=== PATIENT | female | born 1980 | race African-American/Black ===

== ENCOUNTER 2016-09-29 18:28 | Emergency (ER) | payer OTHER ==
[~2016-09-29] VITALS: Ht 152.4 cm; Wt 59.1 kg
[~2016-09-29 18:28] MED LIST: CREON12 PO; MEDR4PAK3 PO; PANT20 PO; ZITH200S PO
[2016-09-29 18:30] VITALS: BP 136/97; PULSE 89; RESP 14; TEMP 98.2; O2SAT 97
--- NOTE | 2016-09-29 20:24 | PD ---
HPI Chief Complaint: Injury Time Seen by Provider: 20:15 Travel History International Travel<30 days: No Contact w/Intl Traveler<30days: No Traveled to known affect area: No History of Present Illness HPI 36 year old female presents for evaluation of left index finger pain. Symptom onset 4 days ago. Pain is an aching pain that seems to be localized to the proximal aspect of the left index finger and MCP joint. Pain is worse with movement. 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 Denies any pain in the other fingers, left wrist, proximal arm. She has never had this problem before. No other complaints. PFSH Past Medical History Arthritis: No Asthma: No Autoimmune Disease: No Blood Disorders: No Anxiety: Yes Depression: No Heart Rhythm Problems: No Cancer: No Cardiovascular Problems: No High Cholesterol: No Chemotherapy: No Chest Pain: No Congestive Heart Failure: No COPD: No Cerebrovascular Accident: No Diabetes: No Diminished Hearing: Yes Endocrine: No Gastrointestinal Disorders: Yes (GASTROPARESIS) GERD: Yes Genitourinary: Yes Headaches: No Hepatitis: No Hiatal Hernia: No Hypertension: Yes Immune Disorder: No Implanted Vascular Access Dvce: Yes Kidney Stones: Yes Musculoskeletal: Yes (SONIYA) Neurologic: No Psychiatric: No Reproductive: No Respiratory: No Immunizations Current: Yes Migraines: No Myocardial Infarction: No Pancreatitis: Yes Radiation Therapy: No Renal Failure: No Seizures: No Sickle Cell Disease: No Thyroid Disease: No Ulcer: No PNEUMOCCOCAL Vaccine (Year): 2007 ?: Not Menopausal: Yes : 2 Para: 2 Ectopic : Yes Ovarian Cysts: Yes Tubal Ligation: Yes Past Surgical History Abdominal Surgery: Yes (HX G TUBE/REMOVED) AICD: No Appendectomy: Yes Arteriovenous Shunt: No Cardiac Surgery: No Cholecystectomy: Yes Ear Surgery: No Endocrine Surgery: No Genitourinary Surgery: No Gynecologic Surgery: Yes Hysterectomy: Yes Insulin Pump: No Joint Replacement: No Neurologic Surgery: No Oral Surgery: No Pacemaker: No Thoracic Surgery: No Other Surgery: Yes (HX OF G-TUBE PLACEMENT) Social History Alcohol Use: No Tobacco Use: Yes (3-4 CIG DAILY) Substance Use: No Allergies-Medications (Allergen,Severity, Reaction): Coded Allergies: Compazine (Verified Allergy, Severe, Anaphylaxis, 09/29/16) Darvocet-N 100 (Verified Allergy, Severe, NAUSEA & VOMITING/ABD PAIN, ) Reglan (Verified Allergy, Severe, Anaphylaxis, 09/29/16) Stadol (Verified Allergy, Severe, ITCHING, 09/29/16) Toradol (Verified Allergy, Severe, HIVES, 09/29/16) Tylenol #3 (Verified Allergy, Severe, NAUSEA/VOMITING/ABD PAIN, 09/29/16) Reported Meds & Prescriptions Reported Meds & Active Scripts Active Reported Zithromax Liq (Azithromycin) 200 Mg/5 Ml Susp 200 Mg PO BID for 3 days. Protonix (Pantoprazole Sodium) 20 Mg Tab 20 Mg PO DAILY Creon (Amylase/Lipase/Protease) 12,000-38,000-60,000 Units Cap 1 Cap PO TIDPC Review of Systems Musculoskeletal: Positive: Pain, No: Limited ROM Skin: No Rash Physical Exam Narrative GENERAL: Well-developed well-nourished female in no acute distress SKIN: Warm and dry. No rash no bruising or soft tissue swelling no open wounds CARDIOVASCULAR: Regular rate and rhythm. No murmur appreciated. RESPIRATORY: No accessory muscle use. Clear to auscultation. Breath sounds equal bilaterally. Extremities: there is tenderness to palpation to the left index finger MCP joint. There is no joint effusion, no erythema or induration of the skin. There is no obvious deformity at all. She maintains full range of motion of the left finger. There is pain with range of motion activities in the left proximal index finger. Data Data Last Documented VS Vital Signs Date Time Temp Pulse Resp B/P Pulse Ox O2 Delivery O2 Flow Rate FiO2 09/29/16 18:30 98.2 89 14 136/97 97 Room Air Orders Finger ([id number]) (09/29/16 ) [facility] Medical Decision Making Medical Screen Exam Complete: Yes Emergency Medical Condition: Yes Medical Record Reviewed: Yes Interpretation(s) Finger x-ray unremarkable Differential Diagnosis Finger sprain, strain, contusion, fracture, rheumatoid arthritis, septic arthritis Narrative Course Physical examination is completely unremarkable. The patient has no obvious deformity on examination. Plan is for screening x-ray and then have the patient follow up with primary care as needed. Finger splint provided for comfort measures. Diagnosis Primary Impression: Strain of left hand and finger Qualified Code: S66.912A - Strain of left hand and finger, initial encounter Additional Instructions: Take Tylenol for discomfort. Avoid strenuous activity. Follow-up with primary care as needed. Finger splint for short-term to 3 day use only. Med/Other Pt SpecificInfo: Orthopedic Instructions Disposition: 01 DISCHARGE HOME Condition: Stable Carlos Michaud Sep 29, 2016 20:24
[2016-09-29] MEDS ORDERED: AZIT200S PO (20:46)
[2016-09-29] MEDS ORDERED: CREON12 PO (20:46)
[2016-09-29] MEDS ORDERED: PANT20 PO (20:46)
--- NOTE | 2016-09-29 20:56 | RADRPT ---
EXAM DATE/TIME: 09/29/2016 20:41 [place] COMPARISON: No previous studies available for comparison. INDICATIONS : Left hand, second digit pain from unknown injury. MEDICAL HISTORY : None. SURGICAL HISTORY : None. ENCOUNTER: Initial ACUITY: 1 day PAIN SCORE: 6/10 LOCATION: Left hand, second digit FINDINGS: Examination of the second digit of the left hand demonstrates no evidence of fracture or dislocation. No radiopaque foreign bodies are seen. The soft tissues are intact. CONCLUSION: Normal radiographic appearance of the pointer finger. Tex Barnett MD on September 29, 2016 at 20:54 Board Certified Radiologist. This report was verified electronically.
== END 2016-09-29 22:28 | disposition home or self-care (01) ==
LOC: NEPB 18:28
DX: S66.912A Strain of unspecified muscle, fascia and tendon at wrist and hand level, left hand, initial encounter (principal); F41.9 Anxiety disorder, unspecified; K31.84 Gastroparesis; K21.9 Gastro-esophageal reflux disease without esophagitis; I10 Essential (primary) hypertension; K85.90 Acute pancreatitis without necrosis or infection, unspecified; W22.8XXA Striking against or struck by other objects, initial encounter
CPT/HCPCS: 29130; 73140